=== PATIENT | male | born 1965 | race Caucasian/White ===

== ENCOUNTER 2017-08-15 06:01 | Day surgery (SDC) | payer BC ==
[2017-08-15] MEDS ORDERED: Bupivacaine 0.25% 10 ML SDV ONE (06:35)
[2017-08-15] MEDS ORDERED: Lidocaine 1%/Sod Bicarbonate in NS 8.4% 1 ML Syringe IDERM PRN (07:00)
[2017-08-15] MEDS ORDERED: Lactated Ringers 1,000 ML IV SCH (07:00)
[2017-08-15] MEDS ORDERED: Sodium Chloride 0.9% 10 ML Syringe FLUSH PRN (07:00)
[2017-08-15] MEDS ORDERED: Lidocaine 1% 4 ML ONE (07:09)
[2017-08-15] MEDS ORDERED: Midazolam 1 MG/ML 2 ML SDV ONE (07:09)
[2017-08-15] MEDS ORDERED: Ondansetron 4 MG/2 ML SDV ONE (07:09)
[2017-08-15] MEDS ORDERED: Propofol 200 MG/20 ML SDV ONE ×2 (07:09→07:14)
[2017-08-15] MEDS ORDERED: fentaNYL 250 MCG/5 ML SDV ONE (07:09)
--- NOTE | 2017-08-15 07:14 | PCM.PREANE ---
Preanesthetic Assessment - Procedure Proposed Procedure: Right knee video arthroscopy - Anesthesia/Transfusion/Family Hx Anesthesia History: Prior Anesthesia Without Reaction Family History of Anesthesia Reaction: No Transfusion History: No Prior Transfusion(s) Additional History: History of ETOH abuse, denies using alcohol but has an ankle bracelet on for the next couple months. - Review of Systems General: No Symptoms Pulmonary: No Symptoms Cardiovascular: No Symptoms Gastrointestinal: No Symptoms Neurological: No Symptoms Other: Reports: None - Physical Assessment NPO Status Date: 08/14/17 NPO Status Time: 22:30 O2 Sat by Pulse Oximetry: 95 Respiratory Rate: 18 Vital Signs: Last Vital Signs Temp 36.7 C 08/15/17 06:15 Pulse 60 08/15/17 06:15 Resp 18 08/15/17 06:15 BP 104/67 08/15/17 06:15 Pulse Ox 95 08/15/17 06:15 Height: 1.85 m Weight: 88.451 kg ASA Class: 2 Mental Status: Alert & Oriented x3 Airway Class: Mallampati = 1 Dentition: Reports: Broken Tooth/Teeth (bilateral lower molars cracked ) Thyro-Mental Finger Breadths: 3 ROM/Head Extension: Full Lungs: Clear to Auscultation, Normal Respiratory Effort Cardiovascular: Regular Rate, Regular Rhythm - Allergies Allergies/Adverse Reactions: Allergies Allergy/AdvReac Type Severity Reaction Status Date / Time No Known Allergies Allergy Verified 08/14/17 13:17 - Blood Blood Available: No Product(s) Available: None - Anesthesia Plan Pre-Op Medication Ordered: None - Acknowledgements Anesthesia Type Planned: General Anesthesia (LMA) Pt an Appropriate Candidate for the Planned Anesthesia: Yes Alternatives and Risks of Anesthesia Discussed w Pt/Guardian: Yes Pt/Guardian Understands and Agrees with Anesthesia Plan: Yes PreAnesthesia Questionnaire HEENT History: Reports: Impaired Vision Cardiovascular History: Reports: None Respiratory History: Reports: None Gastrointestinal History: Reports: None Genitourinary History: Reports: None MOTION PICTURE NARRATOR History: Reports: None Musculoskeletal History: Reports: Gout, Other (See Below) Other Musculoskeletal History: right knee meniscus tear Neurological History: Reports: None Psychiatric History: Reports: Addiction, Other (See Below) Other Psychiatric History: history of ETOH abuse Endocrine/Metabolic History: Reports: None Hematologic History: Reports: None Immunologic History: Reports: None Oncologic (Cancer) History: Reports: None Dermatologic History: Reports: None - Past Surgical History Head Surgeries/Procedures: Reports: None HEENT Surgical History: Reports: None Cardiovascular Surgical History: Reports: None Respiratory Surgical History: Reports: None GI Surgical History: Reports: Appendectomy Male Surgical History: Reports: Vasectomy Endocrine Surgical History: Reports: None Neurological Surgical History: Reports: None Musculoskeletal Surgical History: Reports: Other (See Below) Other Musculoskeletal Surgeries/Procedures:: Left knee arthroscopy x 2, right knee arthroscopy Dermatological Surgical History: Reports: None - SUBSTANCE USE Smoking Status *Q: Current Every Day Smoker Tobacco Use Within Last Twelve Months: Smokeless Tobacco, Snuff/Dip Recreational Drug Use History: No - HOME MEDS Home Medications: Home Meds Allopurinol [Zyloprim] 300 mg PO DAILY 08/14/17 [History] Indomethacin [Indocin] 50 mg PO TID PRN 08/14/17 [History] - CURRENT (IN HOUSE) MEDS Current Meds: Current Medications Lactated Ringer's (Ringers, Lactated) 1,000 mls @ 125 mls/hr IV ASDIRECTED NAT Stop: 08/15/17 23:00 Last Admin: 08/15/17 06:30 Dose: 125 mls/hr Lidocaine/Sodium Bicarbonate (Buffered Lidocaine 1% In Ns 8.4%) 0.25 ml IDERM ONETIME PRN PRN Reason: Prior to IV Start Stop: 08/15/17 18:00 Last Admin: 08/15/17 06:29 Dose: 0.25 ml Sodium Chloride (Saline Flush) 10 ml FLUSH ASDIRECTED PRN PRN Reason: Keep Vein Open Stop: 08/15/17 18:00 Discontinued Medications Bupivacaine HCl (Sensorcaine-Mpf 0.25%) Confirm Administered Dose 10 ml .ROUTE .STK-MED ONE Stop: 08/15/17 06:36
[2017-08-15] MEDS ORDERED: EPINEPHrine 1 MG/ML 30 ML MDV IV ONE (07:15)
[2017-08-15] MEDS ORDERED: ePHEDrine 50 MG/ML SDV ONE (07:37)
[2017-08-15] MEDS ORDERED: ceFAZolin 1 GM Vial ONE ×2 (07:37)
[2017-08-15] MEDS ORDERED: Ketorolac 30 MG/ML SDV ONE (08:01)
[2017-08-15] MEDS ORDERED: Dexamethasone 4 MG/ML 5 ML MDV ONE (08:01)
--- NOTE | 2017-08-15 08:20 | PCM.OPNOTE ---
- General Post-Op/Procedure Note Date of Surgery/Procedure: 08/15/17 Operative Procedure(s): right knee video arthroscopy with partial medial meniscectomy Pre Op Diagnosis: right knee medial meniscus tear Post-Op Diagnosis: Same Anesthesia Technique: General LMA, Local Primary Surgeon: Vinnie Huang Anesthesia Provider: Ny Sanchez Family Educator: Stella Linares in mLs: 5 Complications: None Condition: Good
[2017-08-15] MEDS ORDERED: Meperidine PF 50 MG/ML Syringe IVPUSH PRN (08:28)
[2017-08-15] MEDS ORDERED: HYDROmorphone 0.5 MG/0.5 ML Syringe IVPUSH PRN (08:28)
[2017-08-15] MEDS ORDERED: diphenhydrAMINE 50 MG/ML SDV IVPUSH PRN (08:28)
[2017-08-15] MEDS ORDERED: Ondansetron 4 MG/2 ML SDV IVPUSH PRN (08:28)
[2017-08-15] MEDS ORDERED: fentaNYL 100 MCG/2 ML SDV IVPUSH PRN (08:28)
--- NOTE | 2017-08-15 08:28 | PCM.POSTAN ---
POST ANESTHESIA ASSESSMENT - MENTAL STATUS Mental Status: Alert, Oriented - VITAL SIGNS Pulse Rate: 85 SaO2: 96 Resp Rate: 14 Blood Pressure: 104/68 Temperature: 37.1 C - RESPIRATORY Respiratory Status: Respiratory Rate WNL, Airway Patent, O2 Saturation Stable, Supplemental Oxygen - CARDIOVASCULAR CV Status: Pulse Rate WNL, Blood Pressure Stable - GASTROINTESTINAL GI Status: No Symptoms - PAIN Pain Score: 0 - POST OP HYDRATION Hydration Status: Adequate & Stable
[2017-08-15] MEDS ORDERED: traMADol 50 MG Tab PO PRN (09:00)
--- NOTE | 2017-08-15 11:18 | PCM48HPAN ---
Post Anesthesia Note - EVALUATION WITHIN 48HRS OF ANESTHETIC Vital Signs in Normal Range: Yes Patient Participated in Evaluation: Yes Respiratory Function Stable: Yes Airway Patent: Yes Cardiovascular Function Stable: Yes Hydration Status Stable: Yes Pain Control Satisfactory: Yes Nausea and Vomiting Control Satisfactory: Yes Mental Status Recovered: Yes
--- NOTE | 2017-08-19 08:34 | OR ---
DATE OF OPERATION: 08/15/2017 SURGEON: Vinnie Huang MD OPERATION PERFORMED: Right knee video arthroscopy with partial medial meniscectomy. PREOPERATIVE DIAGNOSIS: Right knee medial meniscus tear. POSTOPERATIVE DIAGNOSIS: Right knee medial meniscus tear. ANESTHESIA: General LMA with local. ANESTHESIA PROVIDER: Marilia Giraldo. TEST TECHNICIAN: Stella Linares PA-C. ESTIMATED BLOOD LOSS: 5 mL. COMPLICATIONS: None. CONDITION: Stable. DESCRIPTION OF PROCEDURE: The patient was identified in the preop holding area. Proper site was marked and identified by the surgeon. The patient was taken back to the operative theater, where after adequate anesthesia, the patient's left lower extremity was placed in a well leg mart. Right lower extremity had a nonsterile tourniquet applied and it was then sterilely prepped and then was placed in a C-clamp mart. It was then sterilely prepped and draped in the usual sterile fashion. OR time-out was performed. The patient received 2 g of IV Ancef. At this time, right lower extremity was exsanguinated. Tourniquet was insufflated to 250 mmHg. Standard anterolateral portal incision was made. The scope trocar was introduced. Patellofemoral joint showed grade 1 chondromalacia. There were no loose foreign bodies in the mediolateral gutter. Attention was turned to the medial compartment. With the use of a spinal needle, anteromedial portal was created. Cursory examination showed grade 2 chondromalacia of the medial femoral condyle as well as tibial plateau. There was degenerative tear noted to the posterior horn of the medial meniscus with significant fraying. At this time, a partial medial meniscectomy at the posterior third of the medial meniscus was then performed. This was taken back to a stable rim with no signs of instability. At this time, ACL was found to be intact in the notch. The lateral compartment showed no signs of chondromalacia and no lateral meniscus tear. At this time, excess saline was drained from the knee. A 3-0 nylon simple suture was used for closure of the skin. The patient had a sterile soft dressing applied and sent to the PACU in stable condition. MMODAL /[id number]
== END 2017-08-15 11:05 | disposition home or self-care (01) ==
LOC: JD.SDS 06:01
PROVIDERS: ATTEND Orthopaedic Surgery
DX: S83.241A Other tear of medial meniscus, current injury, right knee, initial encounter (principal); M22.41 Chondromalacia patellae, right knee; M10.9 Gout, unspecified; F17.290 Nicotine dependence, other tobacco product, uncomplicated; Z79.899 Other long term (current) drug therapy; Z90.49 Acquired absence of other specified parts of digestive tract
CPT/HCPCS: 29881; A9270; J0171; J0690; J1100; J1885; J2001; J2250; J2405; J3010; J7120; 01400; J2704

== ENCOUNTER 2019-05-14 14:20 | Emergency (ER) | payer BC ==
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
== END 2019-05-14 17:42 | disposition home or self-care (01) ==
LOC: JD.ED 14:20
DX: Z02.89 Encounter for other administrative examinations (principal); M10.9 Gout, unspecified; Z79.899 Other long term (current) drug therapy
CPT/HCPCS: 80306; 99282

== ENCOUNTER 2020-09-08 09:25 | Emergency (ER) | payer BC ==
--- NOTE | 2020-09-08 09:52 | EDM.PDOC ---
ED HPI GENERAL MEDICAL PROBLEM - General Chief Complaint: Allergic Reaction Stated Complaint: ALLERGIC RX SENT BY [facility] Time Seen by Provider: 09/08/20 09:35 Source of Information: Reports: Patient History Limitations: Reports: No Limitations - History of Present Illness INITIAL COMMENTS - FREE TEXT/NARRATIVE: 55-year-old male presents to the ED at the request of primary care provider in [place]. Patient reports that he was down in [place] over the weekend and on Saturday started to develop hives and generalized pruritus. Condition worsened and by Saturday he went into the clinic was started on 20 mg of prednisone in the morning and Atarax at bedtime. This morning he awoke with marked swelling of his eyes particular the right eye was closed completely. He was up twice during the night put lotion on his rash for the itch. He denies any shortness of breath although he did feel some pressure in his throat which improved after he got up for the day. The cause of the urticaria is unclear. It is most likely foodborne but patient cannot remember anything that he took abnormally on the day prior to development of the urticaria which would have been Saturday, September 02. No red food dyes , no nuts that he is aware of or unusual herbs or spices. Patient takes allopurinol on a daily basis and has for couple of years. Takes indomethacin rarely for gout flareup and the last time was a couple of months ago. He is not been ill with any viral upper respiratory tract infections. Onset: Sudden Onset Date: 09/04/20 Duration: Day(s):, Getting Worse Location: Reports: Face (Right eye was completely swollen shut this morning when he awoke.), Generalized Quality: Reports: Other (Generalized urticaria with significant swelling of) Severity: Severe (periorbital soft tissues) Improves with: Reports: None Worsens with: Reports: None Context: Reports: Other (Spontaneous occurrence). Denies: Activity, Exercise, Lifting, Sick Contact, Trauma Associated Symptoms: Reports: Other (Severe generalized pruritus. Some mild pressure in his back of his throat that resolved once he got up for the day.) Treatments EDUCATION NURSE: Reports: Other (see below) Other Treatments EDUCATION NURSE: Hydroxyzine, Prednisone, and Fluocinonide - Related Data Allergies Allergy/AdvReac Type Severity Reaction Status Date / Time No Known Allergies Allergy Verified 05/14/19 01:39 FINISHED YARN EXAMINER Home Meds: Home Meds allopurinoL [Zyloprim] 300 mg PO DAILY 08/14/17 [History] predniSONE [Prednisone] 40 mg PO DAILY 05/14/19 [History] Cetirizine [ZyrTEC] 10 mg PO DAILY #12 tab 09/08/20 [Rx] predniSONE [Prednisone] 20 mg PO ASDIRECTED #24 tablet 09/08/20 [Rx] Past Medical History HEENT History: Reports: Impaired Vision Cardiovascular History: Reports: None Respiratory History: Reports: None Gastrointestinal History: Reports: None Genitourinary History: Reports: None TRANSPORTATION REFRIGERATION TECHNICIAN History: Reports: None Musculoskeletal History: Reports: Gout, Other (See Below) Other Musculoskeletal History: right knee meniscus tear Neurological History: Reports: None Psychiatric History: Reports: Addiction, Other (See Below) Other Psychiatric History: history of ETOH abuse Endocrine/Metabolic History: Reports: None Hematologic History: Reports: None Immunologic History: Reports: None Oncologic (Cancer) History: Reports: None Dermatologic History: Reports: None - Past Surgical History Head Surgeries/Procedures: Reports: None HEENT Surgical History: Reports: None Cardiovascular Surgical History: Reports: None Respiratory Surgical History: Reports: None GI Surgical History: Reports: Appendectomy Male Surgical History: Reports: Vasectomy Endocrine Surgical History: Reports: None Neurological Surgical History: Reports: None Musculoskeletal Surgical History: Reports: Other (See Below) Other Musculoskeletal Surgeries/Procedures:: Left knee arthroscopy x 2, right knee arthroscopy Dermatological Surgical History: Reports: None Social & Family History - Caffeine Use Caffeine Use: Reports: Coffee - Living Situation & Occupation Living situation: Reports: Occupation: Employed ED ROS ALLERGIC REACTION - Review of Systems Review Of Systems: See Below Constitutional: Reports: Fatigue (From not getting adequate sleep the last few nights.). Denies: Fever, Chills, Malaise, Weakness HEENT: Reports: Throat Pain (Pressure in the back of his neck.), Other (Marked swelling periorbitally of upper and lower eyelids. Right eye was completely swollen close this morning.) Respiratory: Denies: Shortness of Breath, Wheezing, Pleuritic Chest Pain, Cough, Sputum, Hemoptysis, Other Cardiovascular: Reports: No Symptoms. Denies: Chest Pain, Blood Pressure Problem, Claudication, Edema, Lightheadedness, Orthopnea, Palpitations Endocrine: Reports: Fatigue GI/Abdominal: Reports: No Symptoms : Reports: No Symptoms Musculoskeletal: Reports: No Symptoms Skin: Reports: Pruritis, Erythema, Urticaria Neurological: Reports: No Symptoms Psychiatric: Reports: No Symptoms Hematologic/Lymphatic: Reports: No Symptoms Immunologic: Reports: No Symptoms ED EXAM GENERAL NO PERIP PULSE - Physical Exam Exam: See Below Exam Limited By: No Limitations General Appearance: Alert, WD/WN, Moderate Distress, Other (His eyes are still very swollen face is diffusely erythematous. He has no swelling of his tongue or oropharynx and the uvula is normal. Vital signs show temperature of 36.8 heart rate 70 and sinus respiratory 16 with O2 sats of 97% on room air BP 134/83.) Eye Exam: Right Eye: Other (Marked swelling of the upper and lower eyelids from edema), Bilateral Eye: Conjunctival Injection (Minimal bilaterally.), PERRL Throat/Mouth: Normal Inspection, Normal Lips, Normal Teeth, Normal Oropharynx Head: Atraumatic, Normocephalic Neck: Normal Inspection, Supple, Non-Tender, Full Range of Motion. No: Lympha denopathy (L), Lymphadenopathy (R) Respiratory/Chest: No Respiratory Distress, Lungs Clear, Normal Breath Sounds, No Accessory Muscle Use Cardiovascular: Normal Peripheral Pulses, Regular Rate, Rhythm, No Edema, No Murmur, No Rub GI/Abdominal: Normal Bowel Sounds, Soft, Non-Tender, No Organomegaly, No Distention, No Abnormal Bruit Extremities: Normal Inspection, Normal Range of Motion, Non-Tender, No Pedal Edema Neurological: Alert, Oriented, CN II-XII Intact, Normal Cognition Psychiatric: Normal Affect, Normal Mood Skin Exam: Other (Generalized erythema particularly face and nape of neck. Scattered urticaria. This involves his extremities abdomen and back.) Course - Vital Signs Last Recorded V/S: Last Vital Signs Temp 36.8 C 09/08/20 09:37 Pulse 70 09/08/20 09:37 Resp 16 09/08/20 09:37 BP 134/83 09/08/20 09:37 Pulse Ox 97 09/08/20 09:37 - Radiology Interpretation Free Text/Narrative:: Generalized urticaria likely food trigger. Not responding to initial dose of 20 mg of prednisone once daily. Plan will be to increase the prednisone to 20 mg 3 times daily for 4 days then reduce it to twice daily for 4 days and then every other day for 4 days. Zyrtec 10 mg in the morning with Atarax at bedtime. Follow-up if not markedly improved in 72 hours time Departure - Departure Time of Disposition: 09:47 Disposition: Home, Self-Care 01 Condition: Fair Clinical Impression: Urticaria - Discharge Information *PRESCRIPTION DRUG MONITORING PROGRAM REVIEWED*: Not Applicable *COPY OF PRESCRIPTION DRUG MONITORING REPORT IN PATIENT ARIC: Not Applicable Prescriptions: predniSONE [Prednisone] 20 mg PO ASDIRECTED #24 tablet Cetirizine [ZyrTEC] 10 mg PO DAILY #12 tab Referrals: Suma Roche NP [Primary Care Provider] - Forms: ED Department Discharge Additional Instructions: Evaluation in the emergency room today in regards to generalized urticaria or hives on Saturday, September 03 will down in [place]. Currently you have generalized erythema with hives scattered chest and abdomen and marked swelling of this periorbital soft tissues the upper and lower eyelids. Note these are the soft his skin in her body and swell the easiest. Cause of hives is unclear but it is most likely a foodborne trigger . Likely something you ate on Saturday, September 02. Less likely could be a underlying viral infection. Increase prednisone to 20 mg 3 times daily usually planning on breakfast mid afternoon and after supper for 4 days then decrease to breakfast and supper for 4 days then then decrease to 1 tablet every other morning for 4 more days. Suggest also taking Zyrtec 10 mg once daily in the morning and continue Atarax at bedtime to help sleep. Expect marked improvement over the next 48 to 72 hours Sepsis Event Note (ED) - Evaluation Sepsis Screening Result: No Definite Risk - Focused Exam Vital Signs: Vital Signs Temp Pulse Resp BP Pulse Ox 09/08/20 09:37 36.8 C 70 16 134/83 97
== END 2020-09-08 10:00 | disposition home or self-care (01) ==
LOC: JD.ED 09:25
DX: L50.9 Urticaria, unspecified (principal)
CPT/HCPCS: 99282; 99283